=== PATIENT | male | born 1990 ===

== ENCOUNTER → 2025-01-28 | Outpatient (REF) | payer OTHER | LOC: M LAB REF 12:24 | PROVIDERS: ATTEND Student in an Organized Health Care Education/Training Program | DX: Z31.41 Encounter for fertility testing (principal) ==

== ENCOUNTER → 2025-01-31 | Outpatient (REF) | payer OTHER ==
[2025-01-31 11:30] LABS: SEMEN APPEARANCE OPAQUE (OPAQUE); SEMEN VISCOSITY LIQUID (LIQUID); SEMEN VOLUME 4.2 ml (2.0-5.0); WBC CONCENTRATION <=1 M/ml (<=1 M/ml)
[2025-01-31 11:31] LABS: SPERM CONCENTRATION 106.9 M/ml (>=15.0); TOTAL PROGRESSIVE SPERM 138.0 M/Ejac.
== END ==
LOC: M SFHCWAGY 10:33
PROVIDERS: ATTEND Student in an Organized Health Care Education/Training Program
DX: Z31.41 Encounter for fertility testing (principal)